=== PATIENT | male | born 1990 | race Two or more races ===

== ENCOUNTER 2017-07-03 03:45 | Emergency (ER) | payer BC ==
[2017-07-03] MEDS ORDERED: NORMAL SALINE 1000 ML 1,000 ML IV ONE (04:31)
[2017-07-03] MEDS ORDERED: FENTANYL CITRATE INJ/PF 100 MCG/2 ML AMPUL IV ONE (04:32)
--- NOTE | 2017-07-03 04:34 | ER Document Report ---
ED GI/ - General Mode of Arrival: Ambulatory Information source: Patient, Parent TRAVEL OUTSIDE OF THE [place] IN LAST 30 DAYS: No - HPI Patient complains to provider of: Abdominal pain, Testicular pain. No: Vomiting Onset: Other - 3 days Timing/Duration: Persistent Quality of pain: Sharp Pain Level: 4 Location: RLQ, Suprapubic, Left testicle, Right testicle Associated symptoms: denies: Constipation, Diarrhea, Dizzy, Loss of appetite, Nausea, Urinary hesitancy, Urinary frequency, Urinary retention, Urinary urgency , Vomiting Exacerbated by: Denies Relieved by: Denies Similar symptoms previously: No Recently seen / treated by doctor: No <VIVIANA JOSE - Last Filed: 07/03/17 07:48> <LILA HERNANDEZ - Last Filed: 07/03/17 08:56> - General Chief Complaint: Abdominal Pain Stated Complaint: ABDOMINAL PAIN Time Seen by Provider: 07/03/17 04:14 Notes: Patient presents with a 3 day history of side pain that radiates into the scrotum. Patient reports having normal bowel movement today. Patient without any fever, nausea, vomiting or diarrhea. Patient denies any urinary symptoms. Mother states that patient does not typically complain. (VIVIANA JOSE) - Related Data Allergies/Adverse Reactions: No Known Allergies Allergy (Unverified 07/03/17 03:47) Past Medical History - General Information source: Patient, Parent Cannot obtain history due to: Other - Asperger - Social History Smoking Status: Never Smoker Frequency of alcohol use: None Drug Abuse: None Occupation: none Lives with: Family Family History: Reviewed & Not Pertinent Psychiatric Medical History: Reports: Hx Anxiety, Other - aspergers Past Surgical History: Reports: Hx Myringotomy <VIVIANA JOSE - Last Filed: 07/03/17 07:48> Review of Systems - Review of Systems Constitutional: No symptoms reported. denies: Fever, Recent illness EENT: No symptoms reported Cardiovascular: No symptoms reported. denies: Chest pain Respiratory: No symptoms reported. denies: Cough, Short of breath Gastrointestinal: Abdominal pain. denies: Diarrhea, Nausea, Vomiting, Constipation, Poor appetite Genitourinary: No symptoms reported. denies: Dysuria, Flank pain Male Genitourinary: Testicular pain. denies: Penile discharge Musculoskeletal: No symptoms reported. denies: Back pain Skin: No symptoms reported Hematologic/Lymphatic: No symptoms reported Neurological/Psychological: No symptoms reported <OSCAR JOSEJUAN - Last Filed: 07/03/17 07:48> Physical Exam - General General appearance: Appears well, Alert In distress: None - HEENT Head: Normocephalic Eyes: Normal Nasal: Normal Mouth/Lips: Normal Mucous membranes: Normal Neck: Normal, Supple. No: Lymphadenopathy - Respiratory Respiratory status: No respiratory distress Chest status: Nontender Breath sounds: Normal. No: Rales, Rhonchi, Stridor, Wheezing Chest palpation: Normal - Cardiovascular Rhythm: Regular Heart sounds: S1 appreciated, S2 appreciated Murmur: No - Abdominal Inspection: Obese Distension: No distension Bowel sounds: Normal Tenderness: Tender - Back Back: Normal, Nontender. No: CVA tenderness, Vertebra tenderness - Extremities General upper extremity: Normal inspection, Normal strength General lower extremity: Normal inspection, Normal strength - Neurological Neuro grossly intact: Yes Cognition: Normal Chris Coma Scale Eye Opening: Spontaneous Chris Coma Scale Verbal: Oriented [place] Coma Scale Motor: Obeys Commands Chris Coma Scale Total: 15 - Psychological Associated symptoms: Normal affect, Normal mood - Skin Skin Temperature: Warm Skin Moisture: Dry Skin Color: Normal <VIVIANA JOSE - Last Filed: 07/03/17 07:48> - Vital signs Vitals: Temp Pulse Resp BP Pulse Ox 97.9 F 80 18 142/83 H 99 07/03/17 04:06 07/03/17 04:06 07/03/17 04:06 07/03/17 04:06 07/03/17 04:06 Course - Laboratory Result Diagrams: 07/03/17 05:05 07/03/17 05:05 <VIVIANA JOSE - Last Filed: 07/03/17 07:48> - Laboratory Result Diagrams: 07/03/17 05:05 07/03/17 05:05 <LILA HERNANDEZ - Last Filed: 07/03/17 08:56> - Re-evaluation Re-evalutation: 07/03/17 06:31 Patient sleeping, arouses easily to voice. Patient encouraged to obtain urinalysis specimen 07/03/17 07:48 Report and handout given to Lila Hernandez NP (VIVIANA JOSE) 07/03/17 08:04 Assumed care of the patient at this time. Upon physical exam his right inguinal muscle is tender. He states this pain started on after doing jermain and externally rotating his hip makes it worse. And they now realize that he has been complaining of this intermittently for a couple weeks well they have been moving and renovating. His testicle is nontender. His abdomen is nontender. There is no hernia. I will give him Toradol and a heat pack pending the CT results. 07/03/17 08:54 CT scan is negative. I will treat for inguinal right muscle strain. (LILA HERNANDEZ) - Vital Signs Vital signs: Temp Pulse Resp BP Pulse Ox 97.9 F 80 18 142/83 H 99 07/03/17 04:06 07/03/17 04:06 07/03/17 04:06 07/03/17 04:06 07/03/17 04:06 - Laboratory Laboratory results interpreted by me: 07/03/17 05:05 Seg Neutrophils % 39.2 L Discharge <VIVIANA JOSE - Last Filed: 07/03/17 07:48> <LILA HERNANDEZ - Last Filed: 07/03/17 08:56> - Discharge Clinical Impression: Strain of right inguinal muscle Qualifiers: Encounter type: initial encounter Qualified Code(s): S39.013A - Strain of muscle, fascia and tendon of pelvis, initial encounter Condition: Good Disposition: HOME, SELF-CARE Instructions: Muscle Strain ([facility]), Anti-Inflammatory Medication ([facility]), Acetaminophen, Warm Packs ([facility]) Additional Instructions: warm compress tylenol motrin follow up family practice doctor to er if symptoms worsen Prescriptions: Ibuprofen [Motrin 800 mg Tablet] 800 mg PO Q8HP PRN #30 tablet PRN Reason:
[2017-07-03 05:23] LABS: ABSOLUTE BASOPHILS # (AUTO) 0.1 10^3/uL (0.0-0.2); ABSOLUTE EOSINOPHILS # (AUTO) 0.2 10^3/uL (0.0-0.6); ABSOLUTE LYMPHOCYTES (AUTO) 3.2 10^3/uL (0.5-4.7); ABSOLUTE MONOCYTES (AUTO) 0.9 10^3/uL (0.1-1.4); ABSOLUTE NEUT (AUTO) 2.8 10^3/uL (1.7-8.2); BASOPHILS % (AUTO) 1.1 % (0-2); EOSINOPHILS % (AUTO) 2.9 % (0-6); HEMATOCRIT 42.9 % (37.9-51.0); HEMOGLOBIN 14.5 g/dL (13.5-17.0); LYMPHOCYTES % (AUTO) 44.2 % (13-45); MEAN CORPUSCULAR HEMOGLOBIN 28.8 pg (27.0-33.4); MEAN CORPUSCULAR HGB CONC 33.7 g/dL (32.0-36.0); MEAN CORPUSCULAR VOLUME 85 fl (80-97); MONOCYTES % (AUTO) 12.6 % (3-13); PLATELET COUNT 253 10^3/uL (150-450); RED BLOOD COUNT 5.03 10^6/uL (4.35-5.55); RED CELL DISTRIBUTION WIDTH 13.5 % (11.5-14.0); SEGMENTED NEUTROPHILS % (AUTO) 39.2 % (42-78); TOTAL CELLS COUNTED % (AUTO) 100 %; WHITE BLOOD COUNT 7.1 10^3/uL (4.0-10.5)
[2017-07-03 05:45] LABS: ALBUMIN 4.5 g/dL (3.5-5.0); ANION GAP 14 (5-19); ASPARTATE AMINO TRANSFERASE 40 U/L (17-59); BLOOD UREA NITROGEN 14 mg/dL (7-20); CALCIUM 9.8 mg/dL (8.4-10.2); CARBON DIOXIDE 25 mmol/L (22-30); CHLORIDE 104 mmol/L (98-107); GLUCOSE 93 mg/dL (75-110); POTASSIUM 4.6 mmol/L (3.6-5.0); SODIUM 142.7 mmol/L (137-145)
[2017-07-03 05:46] LABS: ALANINE AMINOTRANSFERASE 59 U/L (21-72); ALKALINE PHOSPHATASE 65 U/L (38-126); BILIRUBIN,DIRECT 0.4 mg/dL (0.0-0.4); BILIRUBIN,TOTAL 0.6 mg/dL (0.2-1.3); LIPASE 118.6 U/L (23-300); TOTAL PROTEIN 7.9 g/dL (6.3-8.2)
--- NOTE | 2017-07-03 06:08 | RADIOLOGY REPORT (SQ) ---
EXAM DESCRIPTION: U/S SCROTUM W/DOPPLER CLINICAL HISTORY: 26 years, Male, scrotal pain COMPARISON: None. LIMITATIONS: None. FINDINGS: 4.2 cm right testis, 5.3 cm left testis, bilateral epididymides, and scrotal structures appear normal size, shape, echotexture, and vascularity. No evidence of torsion. IMPRESSION: Normal scrotal sonogram.
[2017-07-03 07:14] LABS: APPEARANCE,URINE CLEAR; BILIRUBIN,URINE NEGATIVE (NEGATIVE); COLOR,URINE YELLOW; GLUCOSE, URINE NEGATIVE (NEGATIVE); KETONES,URINE NEGATIVE (NEGATIVE); LEUKOCYTE ESTERASE,URINE NEGATIVE (NEGATIVE); NITRITE,URINE NEGATIVE (NEGATIVE); PROTEIN,URINE NEGATIVE (NEGATIVE); URINE SPECIFIC GRAVITY 1.026; UROBILINOGEN,URINE NEGATIVE mg/dL (<2.0)
[2017-07-03] MEDS ORDERED: KETOROLAC TROMETHAMINE INJ/PF 30 MG/1 ML SDV IV ONE (08:05)
--- NOTE | 2017-07-03 08:34 | RADIOLOGY REPORT (SQ) ---
EXAM DESCRIPTION: CT ABD/PELVIS WITH IV ONLY COMPLETED DATE/TIME: 07/03/2017 7:06 am REASON FOR STUDY: RLQ, suprapubic scrotal pain COMPARISON: None. TECHNIQUE: CT scan of the abdomen and pelvis performed using helical scanning technique with dynamic intravenous contrast injection. No oral contrast. Images reviewed with lung, soft tissue, and bone windows. Reconstructed coronal and sagittal MPR images reviewed. Delayed images for evaluation of the urinary system also acquired. All images stored on PACS. All CT scanners at this facility use dose modulation, iterative reconstruction, and/or weight based d osing when appropriate to reduce radiation dose to as low as reasonably achievable (ALARA). [facility]: Dose Right [facility]: CareDose [facility]: Dose Right [facility]: Teradose 4D [facility]: [employer] CONTRAST TYPE AND DOSE: contrast/concentration: Isovue mg/ml; Total Contrast Delivered: 100.0 ml; T otal Saline Delivered: 50.5 ml RENAL FUNCTION: GFR > 60. RADIATION DOSE: CT Rad equipment meets quality standard of care and radiation dose reduction techniq ues were employed. CTDIvol: 20.8 - 21.1 mGy. DLP: 2335 mGy-cm.. LIMITATIONS: None. FINDINGS: LOWER CHEST: No significant findings. No nodules or infiltrates. LIVER: Normal size. No masses. No dilated ducts. SPLEEN: Normal size. No focal lesions. PANCREAS: No masses. No significant calcifications. No adjacent inflammation or peripancreatic fluid collections. Pancreatic duct not dilated. GALLBLADDER: No identified stones by CT criteria. No inflammatory changes to suggest cholecystitis. ADRENAL GLANDS: No significant masses or asymmetry. RIGHT KIDNEY AND URETER: No solid masses. No significant calcifications. No hydronephrosis or hyd roureter. LEFT KIDNEY AND URETER: No solid masses. No significant calcifications. No hydronephrosis or hydr oureter. AORTA AND VESSELS: No aneurysm. No dissection. Renal arteries, SMA, celiac without stenosis. RETROPERITONEUM: No retroperitoneal adenopathy, hemorrhage or masses. BOWEL AND PERITONEAL CAVITY: No masses or inflammatory changes. No free fluid or peritoneal masses. APPENDIX: Small appendicolith. No inflammatory changes. PELVIS: No mass. No free fluid. Normal bladder. ABDOMINAL WALL: No masses. No hernias. BONES: No significant or acute findings. OTHER: No other significant finding. IMPRESSION: NO ACUTE FINDING IN THE ABDOMEN OR PELVIS ON CT SCAN WITH IV CONTRAST. TECHNICAL DOCUMENTATION: JOB ID: [id number] Quality ID # [id number]: Final reports with documentation of one or more dose reduction techniques (e.g., Au tomated exposure control, adjustment of the mA and/or kV according to patient size, use of iterative reconstruction technique) 2010 [employer]- All Rights Reserved Reading location - IP/workstation name: [email or web address] [id number]
[2017-07-03 09:49] VITALS: BP 139/85
== END 2017-07-03 09:53 | disposition home or self-care (01) ==
LOC: ER 03:45
DX: S39.013A Strain of muscle, fascia and tendon of pelvis, initial encounter (principal); N50.812 Left testicular pain; N50.811 Right testicular pain; X58.XXXA Exposure to other specified factors, initial encounter
CPT/HCPCS: 99284; 96361; 96374; 36415; 83690; 85025; 80053; 81001; 76870; 93976; 74177; J3010; J1885; J7030